=== PATIENT | male | born 1965 ===

== ENCOUNTER 2021-01-07 05:15 | Day surgery (SDC) | payer OTHER ==
[~2021-01-07 05:15] MED LIST: NORVASC5 MG PO
[2021-01-07] MEDS ORDERED: PERCOCET 5-3251 EACH PO (14:10)
== END 2021-01-07 14:50 | disposition home or self-care (01) ==
LOC: CIR.AMB 05:15
PROVIDERS: ATTEND Surgery
DX: C20 Malignant neoplasm of rectum (principal); Z20.822 Contact with and (suspected) exposure to COVID-19
CPT/HCPCS: 36561; C1751